=== PATIENT | male | born 1940 | race American Indian/Alaskan Native ===

== ENCOUNTER 2019-08-06 07:59 | Emergency (ER) | payer MEDICARE ==
[~2019-08-06] VITALS: Ht 167.6 cm; Wt 56.7 kg
[2019-08-06] MEDS ORDERED: LIDOCAINE HCL 1% LOCAL INJ 20 ML VIAL ONE (08:28)
[2019-08-06] MEDS ORDERED: NEOMYCIN/POLYMYX/BACITR OINT 0.9 GM PKT ONE (08:28)
[2019-08-06] MEDS ORDERED: LIDOCAINE HCL 1% LOCAL INJ 20 ML VIAL INJ ONE (09:00)
--- NOTE | 2019-08-06 09:27 | Diagnostic Imaging Report ---
Exam: Head CT without contrast History: Trauma Comparison studies: None Technique: Axial images were obtained from the skull base to the vertex. Coronal and sagittal images reconstructed from the axial data. Dose modulation, iterative reconstruction, and/or weight based adjustment of the mA/kV was utilized to reduce the radiation dose to as low as reasonably achievable. Radiation dose: Total DLP: 969.14 mGy*cm. Estimated effective dose: DLP x 0.015 Intravenous contrast: None Findings: Scalp: Frontal scalp hematoma and laceration. Punctate hyperdensity present superficially in the frontal soft tissues may be a small hyperdense foreign body (sagittal series 401, image 17). Bones: No fractures, blastic or lytic lesions. Brain sulci: Mildly prominent. Ventricles: Mild compensatory dilatation. No hydrocephalus. Extra-axial spaces: No masses, no fluid collection. Parenchyma: No mass, acute hemorrhage or acute cortical vascular insults. A few scattered hypodensities in the supratentorial white matter are nonspecific but most compatible with chronic small vessel ischemic changes. Sellar/suprasellar region: No abnormalities. Craniocervical junction: Patent foramen magnum. No Chiari one malformation. Incidental findings: Atherosclerotic calcifications in the left carotid site. Scattered nonspecific inflammatory mucosal thickening in the paranasal sinuses. IMPRESSION: 1. Right frontal scalp hematoma and laceration with possible small superficial punctate hyperdense foreign body. 2. No fracture or acute intracranial abnormalities. 3. Mild generalized parenchymal volume loss. 4. Mild chronic microvascular ischemic changes. Signed by: Dr. Neymar Fernandez M.D. on 08/06/2019 9:23 AM
--- NOTE | 2019-08-06 09:36 | Diagnostic Imaging Report ---
History: Trauma Comparison studies: None Technique: Axial images were obtained through the cervical region. Coronal and sagittal images reconstructed from the axial data. Dose modulation, iterative reconstruction, and/or weight based adjustment of the mA/kV was utilized to reduce the radiation dose to as low as reasonably achievable. Intravenous contrast: None Findings: Atlantoaxial articulation: Intact. Alignment: Normal cervical lordosis. Mild convex left cervical curvature is nonspecific. Minimal retrolisthesis of C4 on C5 is most likely degenerative in etiology. Cervicomedullary junction: No abnormalities. The foramen magnum is patent. Soft tissues: No gross acute abnormalities. Vertebrae: No fractures, infection or neoplasm. Degenerative changes: Mildly degenerated disks from C4 to C7 with small disc osteophyte complexes which indent the prevertebral soft tissues but do not result significant canal stenosis. Mild multilevel facet arthrosis. Moderate foraminal stenosis on the right at C4-C5 due to uncovertebral and facet arthrosis. Included lung apices: Nonspecific pleural thickening, scarring and bronchiectasis bilaterally nonspecific 2 mm nodule at the left lung apex, possibly scarring. 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 * Degenerative changes at the bilateral TMJs (right greater than left). * Punctate bilateral dystrophic parotid calcifications. * Nonspecific scattered mucosal thickening in the paranasal sinuses with nonspecific secretions in the left sphenoid and maxillary sinuses and small retention cyst or polyp along the left maxillary sinus alveolar recess. IMPRESSION: 1. No acute osseous abnormalities. 2. Degenerative changes as described. 3. Ligament, spinal cord and or vascular abnormalities cannot be excluded on the basis of this examination Signed by: Dr. Neymar Fernandez M.D. on 08/06/2019 9:32 AM
[2019-08-06 09:39] VITALS: BP 160/90
[2019-08-06] MEDS ORDERED: KEFLEX500 MG PO (09:47)
== END 2019-08-06 09:51 | disposition home or self-care (01) ==
LOC: FSED 07:59
DX: S06.0X0A Concussion without loss of consciousness, initial encounter (principal); S01.81XA Laceration without foreign body of other part of head, initial encounter; S13.4XXA Sprain of ligaments of cervical spine, initial encounter; W18.09XA Striking against other object with subsequent fall, initial encounter; Y93.02 Activity, running; Y92.830 Public park as the place of occurrence of the external cause
CPT/HCPCS: 12014; 70450; 72125; 99283; J2001